=== PATIENT | male | born 1990 | race Caucasian/White ===

== ENCOUNTER 2020-11-09 20:36 | Emergency (ER) | payer OTHER ==
[~2020-11-09] VITALS: Ht 180.3 cm; Wt 87.1 kg
[2020-11-09] MEDS ORDERED: PANADOL (20:51)
== END 2020-11-09 22:53 | disposition home or self-care (01) ==
LOC: ER 20:36
DX: S00.83XA Contusion of other part of head, initial encounter (principal); W18.39XA Other fall on same level, initial encounter; Y93.89 Activity, other specified; Y92.89 Other specified places as the place of occurrence of the external cause; Y99.8 Other external cause status

== ENCOUNTER 2021-03-14 00:30 | Emergency (ER) | payer OTHER ==
[~2021-03-14] VITALS: Ht 175.3 cm; Wt 68.0 kg
[~2021-03-14 00:30] MED LIST: PANADOL
[2021-03-14] MEDS ORDERED: PEPCID AC20 MG PO (05:01)
== END 2021-03-14 05:21 | disposition home or self-care (01) ==
LOC: ER 00:30
DX: F12.929 Cannabis use, unspecified with intoxication, unspecified (principal); K29.60 Other gastritis without bleeding